=== PATIENT | female | born 1970 | race Caucasian/White ===

== ENCOUNTER → 2024-04-03 15:06 | Outpatient (REF) | payer BC, SELFPAY | LOC: WDC 15:06 | PROVIDERS: ATTENDING PHYSICIAN Obstetrics & Gynecology; FAMILY PHYSICIAN Family Medicine | DX: Z12.31 Encounter for screening mammogram for malignant neoplasm of breast (principal) | CPT/HCPCS: 77063; 77067 ==

== ENCOUNTER → 2025-01-27 14:09 | Outpatient (REF) | payer SELFPAY | LOC: HWRAD 14:09 | PROVIDERS: ATTENDING PHYSICIAN Nurse Practitioner Family | DX: R07.9 Chest pain, unspecified (principal); R07.81 Pleurodynia; Z82.49 Family history of ischemic heart disease and other diseases of the circulatory system | CPT/HCPCS: 75571 ==